=== PATIENT | female | born 1980 | race Caucasian/White ===

== ENCOUNTER → 2020-07-09 | Outpatient (CLI) | payer OTHER ==
--- NOTE | 2020-07-09 09:17 | US ---
EXAMINATION TYPE: US thyroid st tissue head/neck DATE OF EXAM: 07/09/2020 COMPARISON: NONE CLINICAL HISTORY: R22.1 Rt neck mass,. GLAND SIZE: Right Lobe: 5.6 x 1.9 x 1.6 cm Overall Parenchyma: homogenous Left Lobe: 6.0 x 2.2 x 2.1 cm Overall Parenchyma: homogeneous Isthmus Thickness: .4 cm NODULES RIGHT: # of nodules measured on right: 1 1. 1.5 X .7 x 1.3 cm hypoechoic solid nodule at the lower pole with well-defined margins. This nod ule is wider than tall and shows intranodular vascularity. Prior size: No previous LEFT: # of nodules measured on left: 2 1. 2.8 X 2.1 x 3.0 cm hypoechoic solid nodule at the lower pole with well-defined margins. This no dule is wider than tall and shows intranodular vascularity. Prior size: No previous 2. .9 X .6 x 1.0 cm hypoechoic solid nodule at the mid pole with well-defined margins. This nodule is wider than tall and shows intranodular vascularity. Prior size: No previous. ISTHMUS: # of nodules measured in the isthmus: 0 Bilateral neck scanned, no evidence of lymphadenopathy. IMPRESSION: 1. Greater than 1 cm bilateral thyroid nodules.
--- NOTE | 2020-07-09 10:07 | FL ---
EXAMINATION TYPE: FL UGI air DATE OF EXAM: 07/09/2020 COMPARISON: NONE HISTORY: Gastroesophageal reflux, substernal pain. TECHNIQUE: A double contrast UGI study is performed. FINDINGS: Bottle Line Worker image of the abdomen shows no gross abnormality. The esophagus shows normal distensibility and mucosal folds. There is normal primary esophageal wave, with decreased secondary peristalsis. There is esophageal retention of contrast due to decreased sec ondary peristalsis, which clears with initiation of additional swallows. There is normal emptying int o the stomach. Small hiatal hernia. No evidence of stricture. The stomach shows normal distensibility, peristalsis, and mucosal folds. No evidence of any mass or ulcer disease. There is severe spontaneous gastroesophageal reflux seen during real time performance of this study. The duodenal bulb, sweep, and proximal small bowel loops are unremarkable. IMPRESSION: 1. Severe spontaneous gastroesophageal reflux to the level of the thoracic inlet. 2. Small hiatal hernia. 3. Decreased esophageal secondary peristaltic waves.
--- NOTE | 2020-07-09 16:56 | US ---
EXAMINATION TYPE: US abdomen complete DATE OF EXAM: 07/09/2020 COMPARISON: NONE CLINICAL HISTORY: R10.10 Upper Abdominal Pain. Pain EXAM MEASUREMENTS: Liver Length: 14.3 cm Gallbladder Wall: .3 cm CBD: .5 cm Spleen: 9.2 cm Right Kidney: 9.0 x 3.7 x 4.3 cm Left Kidney: 9.1 x 5.1 x 3.2 cm Pancreas: Tail obscured by overlying bowel gas Liver: wnl Gallbladder: Large stone 1.6 cm Evidence for sonographic Sargent's sign: No CBD: wnl Spleen: wnl Right Kidney: wnl Left Kidney: wnl Upper IVC: wnl Abd Aorta: wnl IMPRESSION: 1. Cholelithiasis.
== END | disposition home or self-care (01) ==
LOC: RADUSMAIN 08:00
PROVIDERS: ATTEND Family Medicine
DX: K80.20 Calculus of gallbladder without cholecystitis without obstruction (principal); K21.9 Gastro-esophageal reflux disease without esophagitis; K44.9 Diaphragmatic hernia without obstruction or gangrene; E04.2 Nontoxic multinodular goiter
CPT/HCPCS: 74246; 76536; 76700

== ENCOUNTER → 2020-11-14 | Outpatient (CLI) | payer OTHER ==
[2020-11-14 19:08] LABS: Mumps Virus IgG Ab Interp POSITIVE (NEGATIVE); Mumps Virus IgG Antibody 1.2 AI
[2020-11-16 02:26] LABS: Varicella IgM Antibody 0.79 INDEX (<=0.90)
== END | disposition home or self-care (01) ==
LOC: LABWHC1 09:10
PROVIDERS: ATTEND Nurse Practitioner Family
DX: Z01.84 Encounter for antibody response examination (principal); Z13.9 Encounter for screening, unspecified
CPT/HCPCS: 36415; 86735; 86762; 86765; 86787

== ENCOUNTER → 2021-03-21 | Outpatient (CLI) | payer OTHER ==
--- NOTE | 2021-03-21 19:05 | MR ---
MR brain without contrast HISTORY: Multiple sclerosis, G 35 Multiplanar multisequence imaging through the brain, patient's previous exams unavailable for correla tion There is no restricted diffusion. There is no hemorrhage or hydrocephalus. Corpus callosum, pituitary , cervical medullary junction, cerebellopontine angles are normal. There are normal vascular flow voi ds. Brain signal is maintained with exception of some minimal periventricular hyperintensity and inve rsion recovery T2-weighted sequences. Orbits show symmetric appearance. Mild mucosal disease present within the ethmoid air cells and frontal sinus. IMPRESSION: Nonspecific white matter demyelination. Mild sinus disease.
== END | disposition home or self-care (01) ==
LOC: RADMRIMAIN 07:44
PROVIDERS: ATTEND Family Medicine
DX: G35 Multiple sclerosis (principal); R90.82 White matter disease, unspecified
CPT/HCPCS: 70551

== ENCOUNTER → 2021-03-23 | Outpatient (CLI) | payer OTHER ==
--- NOTE | 2021-03-23 09:43 | MR ---
EXAMINATION TYPE: MR cervical spine wo con DATE OF EXAM: 03/23/2021 COMPARISON: NONE HISTORY: MS, Memory loss, slurred words, struggles linking words, choking. TECHNIQUE: T1 sagittal and coronal, T2 sagittal, and gradient echo axial views of the cervical spine are submitted. FINDINGS: The cranial cervical junction is preserved. There is no abnormal signal seen within the sp inal cord or paraspinal soft tissues. Multiple thyroid nodules noted. Partially empty sella turcica. At C2-3 there is no disc herniation or canal stenosis. No foraminal encroachment. At C3-4 there is no disc herniation or canal stenosis. No foraminal encroachment At C4-5 there is no disc herniation or canal stenosis. No foraminal encroachment At C5-6 there is no disc herniation or canal stenosis. No foraminal encroachment At C6-7 there is no disc herniation or canal stenosis. No foraminal encroachment At C7-T1 there is no disc herniation or canal stenosis. No foraminal encroachment IMPRESSION: 1. Normal cervical spine MRI. 2. There are multiple thyroid nodules correlate clinically. EXAMINATION TYPE: MR thoracic spine wo con DATE OF EXAM: 03/23/2021 COMPARISON: None HISTORY: MS, Memory loss, slurred words, struggles linking words, choking. TECHNIQUE: Multiplanar, multisequence imaging of the lumbar spine is performed without IV contrast. FINDINGS: Sagittal images of the thoracic spine show vertebral body heights and alignment to appear s atisfactory. The intervertebral discs demonstrate normal heights and hydration. The spinal cord is n ormal in position and signal. The bone marrow signal intensity is within normal limits. Axial images show no focal disc disease, or facet degenerative change at any lumbar level. There is no spinal canal stenosis, neural foraminal narrowing, or evidence of nerve root compromise. IMPRESSION: Negative MRI of the thoracic spine. EXAMINATION TYPE: MR lumbar spine wo con DATE OF EXAM: 03/23/2021 COMPARISON: NONE HISTORY: MS, Memory loss, slurred words, struggles linking words, choking. TECHNIQUE: T1 and T2 axial and sagittal images of the lumbar spine are submitted. FINDINGS: There is no abnormal signal seen within the visualized spinal cord or paraspinal soft tissu es. At L1-2 there is no disc herniation or canal stenosis. No foraminal encroachment At L2-3 there is no disc herniation or canal stenosis. No foraminal encroachment At L3-4 there is no disc herniation or canal stenosis. No foraminal encroachment. Facet arthropathy n oted. At L4-5 there is no disc herniation or canal stenosis. No foraminal encroachment. Facet arthropathy n oted. At L5-S1 there is no disc herniation or canal stenosis. No foraminal encroachment. Facet arthropathy noted. IMPRESSION: 1. Facet arthropathy L3-4, L4-5 and L5-S1 with no disc herniation, degenerative disc disease, canal s tenosis, or foraminal encroachment. 2. No abnormal signal within the visualized spinal cord.
== END | disposition home or self-care (01) ==
LOC: RADMRIMAIN 08:06
PROVIDERS: ATTEND Family Medicine
DX: E04.2 Nontoxic multinodular goiter (principal)
CPT/HCPCS: 72141; 72146; 72148